=== PATIENT | female | born 2000 | race Caucasian/White ===

== ENCOUNTER 2024-06-01 12:26 | Emergency (ER) | payer OTHER, SELFPAY ==
--- NOTE | ~2024-06-01 | XR_ITS ---
XR chest 1V portable Ordering provider: Bakari Parry MD History: 24 years Female with . left sided chest pain . Comparison: FINDINGS: MEDIASTINUM: The cardiac silhouette is not enlarged. LUNGS: No infiltrates, effusions or pneumothorax. OTHER: No free air under the diaphragm. IMPRESSION: No acute cardiopulmonary pathology. Reviewed, dictated and finalized at location A.
[2024-06-01 12:49] VITALS: BP 128/78; PULSE 88; RESP 16; TEMP 36.8; O2SAT 100
--- NOTE | 2024-06-01 14:32 | ED.ABDPAIN ---
HPI - Abdominal Pain General Chief Complaint: Abdominal Pain Stated Complaint: LUQ abd pain Time Seen by Provider: 06/01/24 14:03 History of Present Illness HPI narrative: 24-year-old female with history of Crohn's disease presents to the emergency department for evaluation for left-sided chest pain and worsening pain with inspiration. Patient states that symptoms started a few weeks ago and have persisted. Patient states this pain is different than her prior Crohn's pain. Patient denies any prior history of PE DVT. Patient denies any recent cough colds or fevers. Patient denies any falls or injuries. Related Data Home Medications Medication Instructions Recorded Confirmed vedolizumab 300 mg intravenous 300 mg IV .[id number] 09/04/23 02/02/24 solution (Entyvio) Allergies Allergy/AdvReac Type Severity Reaction Status Date / Time No Known Allergies Allergy Verified 02/02/24 12:34 Review of Systems Review of Systems: All systems reviewed & are unremarkable except as noted in HPI and below PMFSH Past Medical History Medical History BMI 20.0-20.9, adult Colonoscopy planned Surgical History Surgical History H/O wisdom tooth extraction Hx of removal of ovary Family History Family History Father No problems noted. Mother No problems noted. Sibling No problems noted. Social History Social History Smoking status: Current some day smoker Tobacco type: e-cigarettes/vaping Second hand tobacco smoke exposure: No Alcohol intake: never Substance use: never Substance use type: marijuana Living arrangements: with family Occupation/Education: student Additional occupation/education comments: dental hygenist Gender identity (if verbalized by the patient): Female Exam Narrative: APPEARANCE: Well appearing, no pain, no distress, well-nourished. HEAD: normocephalic, atraumatic. EYES: PERRLA/EOMI, conjunctivae clear. NOSE: Normal no drainage EARS:TMS clear with good light reflex. THROAT: Pharynx clear, no exudate. NECK: Supple. No adenopathy, no masses. RESPIRATORY: Airway patent, respirations nonlabored. Clear to auscultation bilaterally, no rales, rhonchi, wheezing. CARDIOVASCULAR: Left-sided chest wall tenderness to palpation. ABDOMINAL: Soft, nontender, nondistended, normal bowel sounds MUSCULOSKELETAL: Moves all extremities. Strength/ROM intact, No edema, No calf tenderness. NEURO: Alert. Cranial nerves II through XII intact. Good gait. Good coordination SKIN: Warm, dry. Normal Color Course Vital Signs Vital signs: Vital Signs Temperature 98.2 F 06/01/24 12:49 Pulse Rate 88 06/01/24 12:49 Respiratory Rate 16 06/01/24 12:49 Blood Pressure 128/78 06/01/24 12:49 Pulse Oximetry 100 06/01/24 12:49 Oxygen Delivery Room Air 06/01/24 12:49 Temperature 98.5 F 06/01/24 16:54 Pulse Rate 82 06/01/24 16:54 Respiratory Rate 14 06/01/24 16:54 Blood Pressure 110/72 06/01/24 16:54 Pulse Oximetry 100 06/01/24 16:54 Oxygen Delivery Room Air 06/01/24 12:49 MDM - Abdominal Pain MDM Narrative Medical decision making narrative: 24-year-old female presented to the emergency department for evaluation for left-sided chest wall pain. Patient is afebrile with no leukocytosis and hemoglobin of 12.7. Patient has no acute abnormalities on her CMP. Are hours normal patient's D-dimer was not elevated. Patient's UA shows no evidence of infection and chest x-ray shows no acute cardiopulmonary abnormality. EKG showed no acute abnormality. Differential Diagnosis Differential diagnosis: Likely abdominal pain, constipation and pancreatitis Lab Data Attestation: I reviewed the patient's lab results. 06/01/24 14:42 06/01/24 1
[2024-06-01] MEDS: KETOROLAC 15 MG/ML VIAL (*BKC) IV PUSH (14:49)
[2024-06-01 14:58] LABS: BEDSIDEPREGUCG Negative (Negative)
[2024-06-01 15:04] LABS: Basophils Percent Auto 0.6 % (0.2-1.2); Eosinophils Percent Auto 0.4 % (0-4.4); Hematocrit 37.3 % (37.0-47.0); Hemoglobin 12.7 g/dL (12.0-15.0); Immature Granulocyte Absolute 0.02 K/mm3 (0.00-0.031); Immature Granulocyte Percent A 0.3 % (0-0.5); Lymphocytes Absolute Auto 2.03 K/mm3 (0.9-3.2); Lymphocytes Percent Auto 28.8 % (18.3-44.2); Mean Corpuscular Hemoglobin 30.5 pg (26-34); Mean Corpuscular Volume 89.7 fl (80-100); Mean Platelet Volume 10.3 fl (7.4-10.4); Monocytes Absolute Auto 0.6 K/mm3 (0.1-0.6); Monocytes Percent Auto 7.9 % (2.6-8.5); Neutrophils Absolute Auto 4.4 K/mm3 (1.3-6.7); Platelet Count Result 300 k/mm3 (150-375); Red Blood Count 4.16 M/mm3 (4.2-5.4); Red Cell Distribution Width 12.3 % (11.5-14.5); White Blood Count 7.1 K/mm3 (4.5-10.0)
[2024-06-01 15:12] LABS: Lactic Acid Reflex 0.6 mmol/L (0.7-2.0)
[2024-06-01 15:12] LABS: Add Urine Microscopic? YES; Appearance Urine Clear (Clear); Bacteria Urine Rare /hpf; Bilirubin Urine Negative (Negative); Blood Urine Negative (Negative); Color Urine Yellow (Yellow); Glucose Urine UA Negative (Negative); Ketones Urine Negative (Negative); Leukocyte Esterase Ur 1+ LEU/UL (Negative); Nitrate Urine Negative (Negative); Non Pathogenic Casts 0-2; Protein Urine Negative (Negative); RBC Urine 0-2 /hpf (0-2); Specific Grav Ur 1.016 (1.001-1.035); Squamous Epithelial Cell Urine Occasional /hpf (Few); Urobilinogen Urine 0.2 mg/dL (<2.0)
[2024-06-01 15:15] LABS: Alanine Aminotransferase 11 U/L (6-35); Albumin Level 4.5 g/dL (3.5-5.1); Alkaline Phosphatase 40 U/L (38-126); Anion Gap 9 mmol/L (4-12); Aspartate Amino Transferase 20 U/L (14-36); Bilirubin,Total 0.3 mg/dL (0.2-1.3); Blood Urea Nitrogen 14 mg/dL (7-17); Calcium 8.8 mg/dL (8.4-10.2); Carbon Dioxide 27 mmol/L (22-30); Chloride 100 mmol/L (98-107); Estimated CRCL calculation 122 ml/min; Estimated Glomerular Filt Rate > 60; Glucose 98 mg/dL (65-110); Lipase 41 U/L (23-300); Sodium 136 mmol/L (137-145)
[2024-06-01 15:15] LABS: INR 1.1; Prothrombin Time 14.7 Seconds (11.1-14.7)
[2024-06-01 15:16] LABS: Partial Thromboplastin Time 28.7 Seconds (22.3-36.8)
[2024-06-01 15:37] LABS: D Dimer < 0.27 ug/mL (<0.48)
--- NOTE | 2024-06-01 16:07 | ECG_ITS ---
Test Date: 2024-06-01 16:29:06 Measurements Intervals [place] Rate: 72 P: 64 MT: 161 QRS: 72 QRSD: 80 T: 55 QT: 360 QTc: 396 Interpretive Statements SINUS RHYTHM NORMAL ECG No previous ECG available for comparison Electronically Signed On 06-01-2024 20:26:54 CDT by Prateek Romero D.O.
[2024-06-01 16:54] VITALS: BP 110/72; PULSE 82; RESP 14; TEMP 36.9; O2SAT 100
== END 2024-06-01 16:56 | disposition home or self-care (01) ==
PROVIDERS: Emergency Provider Emergency Medicine; PCP Family Medicine
DX: R07.89 Other chest pain (principal); K50.90 Crohn's disease, unspecified, without complications; F17.290 Nicotine dependence, other tobacco product, uncomplicated
CPT/HCPCS: 36415; 71045; 80053; 81001; 81025; 83605; 83690; 85025; 85380; 85610; 85730; 87086; 93005; 96374; 99284; J1885

== ENCOUNTER 2024-06-15 10:06 | Outpatient (CLI) | payer OTHER, SELFPAY ==
--- NOTE | ~2024-06-15 | US_ITS ---
US breast LT limited INDICATION: Palpable left breast abnormality. TECHNIQUE: Dedicated Limited left breast ultrasound COMPARISON: No prior studies for comparison. FINDINGS: The left breast is/are composed of normal heterogeneous echotexture without focal solid or cystic mass. IMPRESSION: 1: Normal left breast ultrasound. BI-RADS CATEGORY 1 - NEGATIVE Reviewed, dictated and finalized at location B.
== END 2024-06-15 10:07 | disposition home or self-care (01) ==
LOC: ANHIMG 10:08
PROVIDERS: PCP Family Medicine
DX: N63.20 Unspecified lump in the left breast, unspecified quadrant (principal)
CPT/HCPCS: 76642

== ENCOUNTER 2024-08-16 11:04 | Outpatient (CLI) | payer OTHER, SELFPAY ==
--- NOTE | ~2024-08-16 | US_ITS ---
EXAMINATION: US soft tissue chest DATE: 08/16/2024 11:22 INDICATION: Localized swelling, mass or lump at the anterior inferior left chest TECHNIQUE: Multiple ultrasound images of the region of concern at the left chest under the breast wer e obtained. COMPARISON: None FINDINGS/IMPRESSION: There is a normal appearance to the subcutaneous fat and underlying left ribs and chest wall at the r egion of concern. No abnormal masses or fluid collections identified. Reviewed, dictated and finalized at location A. [facility]
== END 2024-08-16 11:05 | disposition home or self-care (01) ==
PROVIDERS: PCP Family Medicine; Visit Provider Nurse Practitioner Family
DX: R22.2 Localized swelling, mass and lump, trunk (principal)
CPT/HCPCS: 76604